=== PATIENT | male | born 1975 | race Two or more races ===

== ENCOUNTER 2024-06-07 15:46 | Emergency (ER) | payer MEDICAID, OTHER ==
[~2024-06-07] VITALS: Ht 167.6 cm; Wt 96.8 kg
--- NOTE | 2024-06-07 17:15 | ED.PDOC ---
HPI Comments A 48 year old male brought in by EMS presents to the ED with a chief complaint of chest pain onset today about 1 hour ago. Patient states he was driving home when he began experiencing chest pain, describes it as a pressure/ squeezing sensation on his chest. He also noticed his bilateral hands were tingling as well as dizziness. Patient has a past medical history of anxiety and states he currently feels anxious. Denies SOB, headache, fevers, nausea, vomiting, diarrhea. No other symptoms or modifying factors present at this time. Chief Complaint: Chest Pain Time Seen by MD: 16:47 Primary Care Provider: NONE Reviewed Notes: Medications, Allergies Allergies: Coded Allergies: NO KNOWN ALLERGIES (Unverified , 06/07/24) Information Source: Patient Mode of Arrival: EMS Severity: Moderate Timing: Hours Duration: Since onset Prehospital treatment: None Quality: Squeezing, Pressure Cardiac Risk Factors: None Past Medical History PAST MEDICAL HISTORY: Anxiety Surgical History: Denies all surgeries Family History Family History: Reviewed,noncontributory to illness, Family hx of heart amy Social History Smoker: Non-Smoker Alcohol: Occasionally Drugs: Denies Drug Use Lives In: Home Constitutional: denies: chills, diaphoresis, fatigue, fever, malaise, sweats, weakness, others EENTM: denies: blurred vision, double vision, ear bleeding, ear discharge, ear drainage, ear pain, ear ringing, eye pain, eye redness, hearing loss, mouth pain, mouth swelling, nasal discharge, nose bleeding, nose congestion, nose pain, photophobia, tearing, throat pain, throat swelling, voice changes, others Respiratory: denies: cough, hemoptysis, orthopnea, SOB at rest, shortness of breath, SOB with excertion, stridor, wheezing, others Cardiovascular: reports: chest pain; denies: dizzy spells, diaphoresis, Dyspnea on exertion, edema, irregular heart beat, left arm pain, lightheadedness, palpitations, PND, syncope, others Gastrointestinal: denies: abdomen distended, abdominal pain, blood streaked bowels, constipated, diarrhea, dysphagia, difficulty swallowing, hematemesis, melena, nausea, poor appetite, poor fluid intake, rectal bleeding, rectal pain, vomiting, others Genitourinary: denies: burning, dysuria, flank pain, frequency, hematuria, incontinence, penile discharge, penile sore, pain, testicle pain, testicle swelling, urgency, others Neurological: reports: dizziness, tingling (bilateral hands); denies: fainting, headache, left sided numbness, left sided weakness, numbness, paresthesia, pre- existing deficit, right sided numbness, right sided weakness, seizure, speech problems, tremors, weakness, others Musculoskeletal: denies: back pain, gout, joint pain, joint swelling, muscle pain, muscle stiffness, neck pain, others Integumetry: denies: bruises, change in color, change in hair/nails, dryness, laceration, lesions, lumps, rash, wounds, others Allergic/Immunocompromised: denies: Difficulty Healing, Frequent Infections, Hives, Itching, others Hematologic/Lymphatic: denies: anemia, blood clots, easy bleeding, easy bruising, swollen glands, others Endocrine: denies: excessive hunger, excessive sweating, excessive thirst, excessive urination, flushing, intolerance to cold, intolerance to heat, unexplained weight gain, unexplained weight loss, others Psychiatric: reports: anxiety; denies: bipolar disorder, depression, hopeless, panic disorder, schizophrenia, sleepless, suicidal, others All Other Systems: Reviewed and Negative Physical Exam General Appearance: No Apparent Distress HEENT: Normal ENT Inspection, Pharynx Normal, TMs Normal Neck: Full Range of Motion, Non-Tender, Normal, Normal Inspection Respiratory: Chest Non-Tender, Lungs Clear, No Accessory Muscle Use, No Respiratory Distress, Normal Breath Sounds Cardiovascular: No Edema, No JVD, No Murmur, No Gallop, Normal Peripheral Pulses, Regular Rate/Rhythm Breast Exam: Deferred Gastrointestinal: No Organomegaly, Non Tender, No Pulsatile Mass, Normal Bowel Sounds, Soft Genitalia: Deferred Pelvic: Deferred Rectal: Deferred Extremities: No calf tenderness, Normal capillary refill, Normal inspection, Normal range of motion, Non-tender, No pedal edema Musculoskeletal : Apperance: Normal Neurologic: Alert, solderer electronic II-XII nml as Tested, No Motor Deficits, Normal Affect, Normal Mood, No Sensory Deficits Cerebellar Function: Normal Reflexes: Normal Skin: Dry, Normal Color, Warm Lymphatic: No Adenopathy EKG EKG : Pulse Rate (adult): 83 [place]: Normal Cardiac Rhythm: NSR Block: None ST: Nonsp Was a procedure done? Was a procedure done?: No CP Differential Dx Differential Diagnosis: Angina, [place], Pulmonary Embolus Differential Diagnosis: CHF Differential Diagnosis: Pericarditis X-Ray, Labs, Meds, VS Vital Signs Date Time Temp Pulse Resp B/P (MAP) Pulse Ox O2 Delivery O2 Flow Rate FiO2 06/07/24 18:19 98.2 79 18 140/70 (93) 97 98.2 06/07/24 16:55 83 06/07/24 15:49 106 06/07/24 15:47 98.1 117 20 125/74 (91) 100 Lab Test 06/07/24 18:06 06/07/24 16:54 Range/Units Troponin I High Sensitivity 10 9 </=54 ng/L White Blood Count 6.3 4.4-10.8 10^3/uL Red Blood Count 4.50 4.5-5.90 10^6/uL Hemoglobin 15.6 13.5-17.5 g/dL Hematocrit 44.0 41.0-53.0 % Mean Corpuscular Volume 97.8 80.0-100.0 fL Mean Corpuscular Hemoglobin 34.7 H 28.0-32.0 pg Mean Corpuscular Hemoglobin Concent 35.5 32.0-36.0 g/dL Red Cell Distribution Width 12.7 11.8-14.3 % Platelet Count 209 140-450 10^3/uL Mean Platelet Volume 8.4 6.9-10.8 fL Neutrophils (%) (Auto) 75.4 37.0-80.0 % Lymphocytes (%) (Auto) 16.4 10.0-50.0 % Monocytes (%) (Auto) 7.5 0.0-12.0 % Eosinophils (%) (Auto) 0.4 0.0-7.0 % Basophils (%) (Auto) 0.3 0.0-2.0 % Neutrophils # (Auto) 4.8 1.6-8.6 10 ^3/uL Lymphocytes # (Auto) 1.0 0.4-5.4 10 ^3/uL Monocytes # (Auto) 0.5 0-1.3 10 ^3/uL Eosinophils # (Auto) 0 0-0.8 10 ^3/uL Basophils # (Auto) 0 0-0.2 10 ^3/uL Nucleated Red Blood Cells 0.1 % Sodium Level 140 136-145 mmol/L Potassium Level 3.7 3.5-5.1 mmol/L Chloride Level 103 98-107 mmol/L Carbon Dioxide Level 27 20-31 mmol/L Anion Gap 10 5-15 Blood Urea Nitrogen 11 9-23 mg/dL Creatinine 0.91 0.700-1.30 mg/dL Glomerular Filtration Rate Calc 105 >90 mL/min BUN/Creatinine Ratio 12.1 10.0-20.0 Serum Glucose 117 H 74-106 mg/dL Calcium Level 10.1 8.7-10.4 mg/dL PROCEDURE(s): CXR2 - CHEST TWO VIEWS ROUTINE IMPRESSION: 1. No radiographic evidence of acute cardiopulmonary disease. HS:Y Time of 1ST Reevaluation: 17:17 Reevaluation 1ST: Unchanged Patient Education/Counseling: Diagnosis, Treatment, Prognosis Family Education/Counseling: No Family Present Departure 1 Departure Time of Disposition: 19:30 Impression: Primary Impression: Non-cardiac chest pain Additional Impression: Acute anxiety Disposition: 01 HOME / SELF CARE / HOMELESS Condition: Fair Discharged With: Self Critical Care Note Critical Care Time?: No Stability Stability form required: No Heart Score Heart Score: Heart Score Response (Comments) Value History Slightly Suspicious 0 EKG Normal 0 Age 45-64 1 Risk Factors 1 or 2 risk factors 1 Troponin Normal limit 0 Total 2 I personally scribed for BRADY CASTAÑEDA MD ([email or web address]) on 06/07/24 at 17:15. Electronically submitted by Shanique Moore ([email or web address]). I personally scribed for BRADY CASTAÑEDA MD ([email or web address]) on 06/07/24 at 17:44. Electronically submitted by Shanique Moore ([email or web address]). BRADY CASTAÑEDA MD Jun 07, 2024 17:15
--- NOTE | 2024-06-07 17:25 | DVH ---
XY CHEST TWO VIEWS ROUTINE CLINICAL HISTORY: cp COMPARISON: None TECHNIQUE: Frontal and lateral view of the chest was obtained FINDINGS: Lines and Tubes: None Lungs: No focal consolidation. Pleura: No effusion. No pneumothorax. Cardiomediastinal contours: Unremarkable Bones: No acute osseous abnormality. IMPRESSION: 1. No radiographic evidence of acute cardiopulmonary disease. HS:Y
[2024-06-07 18:19] VITALS: BP 140/70; RESP 18; TEMP 98.2; O2SAT 97
[2024-06-07 18:41] LABS: Basophils # (auto) 0 10 ^3/uL (0-0.2); Eosinophils # (auto) 0 10 ^3/uL (0-0.8); Monocytes # (auto) 0.5 10 ^3/uL (0-1.3)
[2024-06-07 18:43] LABS: Basophils % (auto) 0.3 % (0.0-2.0); Eosinophils % (auto) 0.4 % (0.0-7.0); Hemoglobin 15.6 g/dL (13.5-17.5); Lymphocytes % (auto) 16.4 % (10.0-50.0); Mean Corpuscular Hemoglobin 34.7 pg (28.0-32.0); Mean Corpuscular Hgb Conc. 35.5 g/dL (32.0-36.0); Mean Corpuscular Volume 97.8 fL (80.0-100.0); Monocytes % (auto) 7.5 % (0.0-12.0); Neutrophils # (auto) 4.8 10 ^3/uL (1.6-8.6); Neutrophils % (auto) 75.4 % (37.0-80.0); Nucleated Red Blood Cells % 0.1 %; Platelet Count (auto) 209 10^3/uL (140-450); Red Cell Distribution Width 12.7 % (11.8-14.3); White Blood Cell 6.3 10^3/uL (4.4-10.8)
[2024-06-07 18:50] LABS: Chloride 103 mmol/L (98-107); Potassium 3.7 mmol/L (3.5-5.1); Sodium 140 mmol/L (136-145)
[2024-06-07 18:51] LABS: Anion Gap 10 (5-15); Calcium 10.1 mg/dL (8.7-10.4); Carbon Dioxide 27 mmol/L (20-31)
[2024-06-07 18:56] LABS: BUN/Creatinine Ratio 12.1 (10.0-20.0); Blood Urea Nitrogen 11 mg/dL (9-23); Glucose 117 mg/dL (74-106)
[2024-06-07 19:31] VITALS: PULSE 83
--- NOTE | 2024-06-08 11:16 | ECG ---
[facility] Test Date: 2024-06-07 Test Time: 15:49:08 Pat Name: DEMETRICE ANDREW Department: ER Room: Gender: M Rn Lpn Cna: IC : 1975 Requested By: AKASH STEWART Order Number: [id number] Reading MD: Ja Kim Measurements Intervals [place] Rate: 106 P: 47 MD: 128 QRS: 220 QRSD: 100 T: 43 QT: 358 QTc: 476 Interpretive Statements Sinus tachycardia Probable left atrial enlargement Markedly posterior QRS axis Borderline prolonged QT interval Electronically Signed On 06-10-2024 11:17:10 PST by Ja Kim Please click the below link to view image of tracing.
--- NOTE | 2024-06-08 13:33 | ECG ---
[facility] Test Date: 2024-06-07 Test Time: 16:55:02 Pat Name: DEMETRICE ANDREW Department: ER Room: Gender: M [employer] Worker: IC : 1975 Requested By: AKASH STEWART Order Number: [id number] Reading MD: Ja Kim Measurements Intervals [place] Rate: 83 P: 11 TX: 138 QRS: 231 QRSD: 98 T: 12 QT: 375 QTc: 441 Interpretive Statements Sinus rhythm Markedly posterior QRS axis Electronically Signed On 06-10-2024 11:17:14 PST by Ja Kim Please click the below link to view image of tracing.
== END 2024-06-07 19:54 | disposition home or self-care (01) ==
LOC: EDBD 15:46 → ER 15:46
DX: R07.89 Other chest pain (principal); F41.9 Anxiety disorder, unspecified; E07.89 Other specified disorders of thyroid
CPT/HCPCS: 36415; 71046; 80048; 84484; 85025; 93005